=== PATIENT | male | born 1940 | race Caucasian/White ===

== ENCOUNTER 2018-07-28 05:30 | Inpatient (IN) | payer OTHER ==
[2018-07-19 12:35] LABS: HEMOGLOBIN 15.3 gm/dL (14.0-18.0); MCH 28.6 pg (26.0-34.0); MCHC 33.3 g/dL (28.0-37.0); RBC 5.35 mil/uL (4.50-6.00); RDW 13.6 % (10.5-14.5); WBC 8.8 thou/uL (4.0-11.0)
[2018-07-19 12:37] LABS: URINE CLARITY CLEAR; URINE COLOR YELLOW
[2018-07-19 12:38] LABS: URINE BILIRUBIN NEGATIVE (Negative); URINE BLOOD NEGATIVE (Negative); URINE GLUCOSE-RANDOM* NEGATIVE (Negative); URINE KETONES NEGATIVE (Negative); URINE LEUKOCYTES-REFLEX NEGATIVE (Negative); URINE NITRITE-REFLEX NEGATIVE (Negative); URINE PROTEIN (DIPSTICK) NEGATIVE (Negative); URINE UROBILINOGEN 0.2 E.U./dl (0.2-1.0)
[2018-07-19 12:47] LABS: CALCIUM 10.3 mg/dL (8.5-10.1); CREATININE 1.2 mg/dL (0.7-1.3); POTASSIUM 4.2 mmol/L (3.5-5.1)
[2018-07-19 12:56] LABS: PROTIME 10.5 Seconds (9.3-11.4)
--- NOTE | 2018-07-20 09:58 | EKG ---
[address] [address] ELECTROCARDIOGRAM REPORT Name: RIKY HOFFMAN [id number] Admission: Attend Phys: Philip Navarrete Discharge: Date of : 36 Report #: [id number] THIS REPORT FOR: //name// [facility] Test Date: 2018-07-19 Test Time: 12:21:22 Pat Name: RIKY HOFFMAN Department: Room: Gender: Children'S Counselor: Amna GREGORIO : 1940 Requested By: Philip King Order Number: [id number] MD: Fly Mccarty Measurements Intervals [place] Rate: 88 P: 37 AL: 182 QRS: 24 QRSD: 83 T: 11 QT: 342 QTc: 414 Interpretive Statements Sinus rhythm No significant abnormality No previous ECG available for comparison Electronically Signed On 07-20-2018 9:58:23 CAMP COUNSELOR by Fly Mccarty [email or web address] <ELECTRONICALLY SIGNED> By: Fly Mccarty MD, [facility] 07/20/18 0958 1221 1221 Fly Mccarty MD, FACC /EPI
[~2018-07-28] VITALS: Ht 177.8 cm; Wt 86.2 kg
--- NOTE | ~2018-07-28 | O ---
[facility] [place] [address] OPERATIVE REPORT Name: RIKY HOFFMAN Room #: 150-4 ADM IN M.R.#: [id number] Admission: 07/28/18 Attend Phys: Philip Navarrete Discharge: Date of : 36 Report #: [id number] THIS REPORT FOR: //name// CC: ABUNDIO physician/PCP Philip King DATE OF SERVICE: 07/28/2018 PREOPERATIVE DIAGNOSES: Right shoulder pain, rotator cuff tear arthropathy, biceps tendinopathy with subluxation. POSTOPERATIVE DIAGNOSES: Right shoulder pain, rotator cuff tear arthropathy, biceps tendinopathy with subluxation. PROCEDURE PERFORMED: Right shoulder reverse total shoulder arthroplasty with open biceps tenodesis. SURGEON: Philip King M.D. SUPERVISOR HEAT TREATING: Kourtney Sands PA-C. ANESTHESIA: General with preoperative ultrasound-guided interscalene block. FLUIDS: 800 mL of crystalloid. ESTIMATED BLOOD LOSS: Approximately 50 mL. IMPLANTS UTILIZED: DePuy Delta Xtend size 14 porous coated Global Unite stem with a size 1 modular epiphysis, 42 mm eccentric glenosphere with standard Metaglene. DESCRIPTION OF PROCEDURE: After proper identification of the patient and operative site in preoperative holding area, the operative site was signed by myself. Prophylactic antibiotics given. The patient elected to receive an interscalene block after reviewing the risks, benefits, alternatives and potential complications with anesthesia. After a satisfactory block, the patient was brought back to the operative suite after induction of satisfactory general anesthesia. The patient was carefully positioned in the beach chair with head of bed elevated approximately 40 degrees. Care was taken to appropriately position the head and neck. Right shoulder was sterilely prepped and draped in usual manner. Final skin draping was with an Ioban drape. A Invia.cz Limb positioning system was also utilized. Anterior deltopectoral approach was planned. Skin was incised sharply. Full thickness skin flaps were developed. The deltopectoral interval was identified. Cephalic vein was retracted laterally. Subdeltoid thickening and adhesions [address] [address] OPERATIVE REPORT Name: RIKY HOFFMAN Room #: 150-4 ADM IN M.R.#: [id number] Admission: 07/28/18 Attend Phys: Philip Navarrete Discharge: Date of : 36 Report #: [id number] were noted. Subdeltoid space was carefully and bluntly opened. A Jeannette deltoid retractor was utilized. At this point, a massive rotator cuff tear was noted with in essence the entire subscapularis. Then, a small slip inferiorly being torn supraspinatus and infraspinatus, portion of the teres minor was still intact. Degenerative changes on both the humeral and glenoid side were noted without bone loss. Long head of the biceps tendon was thickened, subluxated anteriorly onto the lesser tuberosity. Biceps tenodesis was performed to the undersurface of the pectoralis major tendon utilizing #2 FiberWire. The remaining free end of the stump was carefully debrided. At this point, humeral head was delivered into the wound. Proximal aspect of the humerus was carefully flattened with an oscillating saw and then the hand reaming up to a size 14 stem was performed at 14 size cortical fit was noted. At this point, the patient's tatitlek retroversion appeared to be approximately 40 degrees. The humeral head osteotomy was performed at 155 degrees using the appropriate cutting jigs and to improve internal rotation, the humerus implant was placed more in 25-30 degree range for implant rotation of the osteotomy as well. Protection plate was applied. Peripheral osteophytes were carefully removed. A small inferior slip of the subscapularis had been released. The axillary nerve was identified and protected throughout the entire procedure. Thickened anterior capsule remained on the glenoid side as this was distracted with a lamina edge stainer. The remaining labrum was carefully debrided. At this point, the Metaglene guide was placed inferiorly on the glenoid. Care was taken to avoid superior inclination, guide pin was inserted. The glenoid was then reamed. Leonidas reamer was utilized and remaining prominent bony or soft tissue was carefully removed with a rongeur. Step drill was then utilized and a standard Metaglene was chosen. It was carefully impacted into position and had good stability. Next, locking superior and inferior screws were placed followed by nonlocking anterior and posterior screws. The locking screws were tightened first, then the nonlockers and then the locking screw was set after these had been sequentially tightened. There was excellent stability of the Metaglene. A 42-mm eccentric glenoid was carefully positioned. The eccentricity was placed inferiorly. This was done over a wire. The locking screw was rotated posteriorly to a click was noted. This was then advanced and it was felt that the glenosphere was seating, impacted and tightened additional 3 times and the glenoid was well seated and glenosphere was well seated to the Metaglene. At this point, attention was divided to the shaft. A size 14 trial was inserted in approximately 25 degrees retroversion, +3 polyethylene liner demonstrated some ability to piston the shoulder with longitudinal traction and a +6 liner provided the best overall fit and stability as well as a soft tissue tension. At this point, trial implants were removed. Drill holes were placed within the anterior cortex of the humerus where #2 FiberWire was passed. Final implant was assembled on the back table, impacted into position, it had excellent stability with testing and a +6 polyethylene trial and liner were then utilized. The polyethylene was carefully impacted into position. The remaining inferior slips of the subscapularis were repaired to the anterior cortex of the humerus. The wound had been irrigated multiple times throughout the procedure with antibiotic irrigant and was done so [facility] [address] [place] [address] OPERATIVE REPORT Name: RIKY HOFFMAN Room #: 150-4 ADM IN M.R.#: [id number] Admission: 07/28/18 Attend Phys: Philip Navarrete Discharge: Date of : 36 Report #: [id number]. One gram of vancomycin powder was utilized, half at deep, half at more superficial, approximately. Deltopectoral interval was closed with 0 Vicryl, 2-0 Vicryl for subcutaneous tissues, final skin closure was with Monocryl. Dermabond was applied as well as sterile dressing. The patient will be immobilized in a sling and abduction pillow. Qualified first line production supervisor utilized throughout the entire procedure to aid in patient limb positioning, visualization and retraction of the soft tissues, instrument passage, closure and sling application. By: 1409 1441 Philip King MD /nt
[~2018-07-28 05:30] MED LIST: BENADRYL25 MG PO; CLEARLAX17 GM PO; FLAX OIL1000 MG PO; LUTEIN20 MG PO; NAPROSYN500 MG PO; OMEPRAZOLE 20 M20 M1 PO; PROBIOTIC1 EAC1 PO
[2018-07-28 12:31] VITALS: BP 139/74
--- NOTE | 2018-07-28 18:51 | NUR ---
PT ARRIVED UNIT AT 1500H. PT ACCOMPANIED BY ADITYA (NURSE) WITH AT BEDSIDE. PT ORIENTED TO UNIT. PT STATES NO PAIN. PT A&O X4. PT TOLERATES CLEAR LIQUIDS. PT R SHOULDER DRESSING C/D/I. PT HAS POLAR PACK IN PLACE. PT HAS NO S/S OF DISTRESS. PT CURRENTLY TOLERATING REG DIET. PT CONTINUES TO BE MONITORED FOR SAFETY.
[2018-07-28 19:41] VITALS: BP 122/79
[2018-07-29] VITALS (7 sets, daily range): BP systolic 105–144; BP diastolic 67–107
[2018-07-29 05:44] LABS: ABSOLUTE NEUTROPHILS 13.6 thou/uL (1.4-8.2); BASOPHILS 0.1 % (0.0-2.0); HEMATOCRIT 39.6 % (42.0-52.0); HEMOGLOBIN 13.3 gm/dL (14.0-18.0); LYMPHOCYTES 5.6 % (24.0-44.0); MCH 28.9 pg (26.0-34.0); MCHC 33.5 g/dL (28.0-37.0); MCV 86.1 fL (80.0-100.0); MONOCYTES 7.8 % (1.0-8.0); PLATELET COUNT 188 thou/uL (150-400); POLYS 86.5 % (36.0-66.0); RDW 13.3 % (10.5-14.5); WBC 15.7 thou/uL (4.0-11.0)
[2018-07-29 05:59] LABS: CALCIUM 9.9 mg/dL (8.5-10.1); CREATININE 1.2 mg/dL (0.7-1.3); MAGNESIUM 1.9 mg/dL (1.8-2.4); POTASSIUM 4.1 mmol/L (3.5-5.1)
--- NOTE | 2018-07-29 07:41 | NUR ---
patient arrived on unit at 0640 via w/c accompanied by 4e staff and . patient up and about w/sba. r shoulder in an immobilizer with a polar ice machine. vs stable x-pulse which is tachy at 104. patient a&ox4.
--- NOTE | 2018-07-29 07:56 | NUR ---
assumed pt care 1899. pt alert and oriented. neurovascular check to r hand intact. initially reported numbness and tingling, by eos full feeling returned. pt pain well controled. polar pack to shoulder. surgical dressing c/d/i. vss, pt slightly tachy complaining of dizziness and sob with movement. orthostatic bp obtained. pt denied dizziness and sob during transport to senior suites. pt slept well throughout the night.
--- NOTE | 2018-07-29 11:06 | NUR ---
ASSUMED CARE THIS AM, SHIFT ASSESSMENT DONE, MEDS GIVEN, VSS. REPROTED PAIN, PRN PAIN MEDS GIVEN. SHOULDER IMMOBILIZER IN PLACE. ABLE TO AMBUALTE TO THE BATHROOM WITH STANDBY ASSIST. WORKED WITH PHYSICAL THERAPHY. WILL CONTINUE TO ASSESS AND ASSIST WITH ADLs NEEDED.
--- NOTE | 2018-07-29 15:22 | NUR ---
INITIAL ASSESSMENT: Pt evaluated for d/c planning needs. Reviewed chart and spoke with nurse, pt and spouse. Pt is alert and oriented. Pt lives in house with spouse and was independent with ADL's prior to admission to the hospital. Pt uses no DME. Pt plans on returning home on d/c from hospital. PT is recommending outpatient PT. Will remain available to assist as needed.
--- NOTE | 2018-07-29 17:11 | NUR ---
DISCHARGE ORDERS RECEIVED. IV WAS TAKEN OUT. PATIENT LEFT WITH [facility] AT 1700.
--- NOTE | 2018-07-29 19:32 | NUR ---
ORDERS WERE RECEIVED TO CHANGE THE SURGICEL DRESSING AT THE SURGICAL SITE. WHEN DRESSING WAS REMOVED, ONE SITE WAS BLEEDING PROFUSELY. PRESSURE WAS APPLIED WITH STERILE GAUGE FOR 5 MINUTES, WITHOUT ANY RESULT. NICHOLAS ROGEL WAS INFORMED. SURGICAL DRESSING WAS APPLIED WITH GAUGE UNDER THORUGHTOUT THE WHOLE SURGICAL SITE. PEBBLES CAME BY AT 1600. TOOK THE DRESSING DOWN AND INDICATED IT IS POSSIBLY A HEMATOMA. XEROFORM AND GAUGE WAS APPLIED ON THE DRESSING SITE BY [facility]. WAS INSTRUCTED BY HER THAT PATIENT CAN DISCHARGE TODAY. PERIPHERAL IV WAS TAKEN OUT. SCRIPTS GIVEN. PATIENT LEFT WITH [facility].
== END 2018-07-29 17:15 | disposition home health service (06) | DRG 483 ==
LOC: SICU 05:30 → TBA 05:30 → PRE 05:33 → 4E 16:09 → SICU 07-29 06:53 → ENTRNSPT 07-29 16:54 → SICU 07-29 17:15
PROVIDERS: Physician Assistant Surgical; ADMIT Orthopaedic Surgery Sports Medicine
PROC: 0RRJ00Z Replacement of Right Shoulder Joint with Reverse Ball and Socket Synthetic Substitute, Open Approach (ICD-10-PCS; principal; 2018-07-28)
PROC: 0LS30ZZ Reposition Right Upper Arm Tendon, Open Approach (ICD-10-PCS; principal; 2018-07-28)
DX: M75.101 Unspecified rotator cuff tear or rupture of right shoulder, not specified as traumatic (principal); K21.9 Gastro-esophageal reflux disease without esophagitis; M75.21 Bicipital tendinitis, right shoulder; D72.829 Elevated white blood cell count, unspecified; Z79.899 Other long term (current) drug therapy; Z88.6 Allergy status to analgesic agent; Z88.8 Allergy status to other drugs, medicaments and biological substances; Z90.49 Acquired absence of other specified parts of digestive tract; Z85.46 Personal history of malignant neoplasm of prostate; Z87.891 Personal history of nicotine dependence
CPT/HCPCS: 10783; 50010; 50101; 50172; 50386; 50417; 50697; 50733; 50935; 51320; 52001; 52138; 52256; 52282; 53000; 53078; 54118; 55430; 56521; 56524; 56525; 56526; 56530; 57095; 57103; 62110; 62900; 64039; 70005